=== PATIENT | male | born 1985 | race Caucasian/White ===

== ENCOUNTER 2017-07-12 03:01 | Observation (INO) | payer BC, OTHER ==
[2017-07-12] MEDS ORDERED: MVI, Adult with Vitamin K 10 ML, Thiamine 100 MG, Folic Acid 1 MG in Sodium Chloride 0.... IV ONE ×8 (03:12→05:11)
[2017-07-12] MEDS ORDERED: Sodium Chloride 0.9% 1,000 ML IV SCH ×2 (03:15→06:45)
--- NOTE | 2017-07-12 03:15 | EDM.PDOC ---
ED HPI GENERAL MEDICAL PROBLEM - General Chief Complaint: Drug or Alcohol Abuse Stated Complaint: INTOXICATED Time Seen by Provider: 07/12/17 03:11 - History of Present Illness INITIAL COMMENTS - FREE TEXT/NARRATIVE: HISTORY AND PHYSICAL: History of present illness: Patient 32-year-old white male brought in seemingly intoxicated found outside police were notified paramedics were notified patient was transported to emergency department his only injury was an avulsion injury to his left ear is no other signs of trauma he does smell of emesis and EtOH patient moves all extremities is uncooperative. Review of systems: As per history of present illness and below otherwise all systems reviewed and negative. Past medical history: As per history of present illness and as reviewed below otherwise noncontributory. Surgical history: As per history of present illness and as reviewed below otherwise noncontributory. Social history: No reported history of drug or alcohol abuse. Family history: As per history of present illness and as reviewed below otherwise noncontributory. Physical exam: HEENT: Avulsion injury left pinna, normocephalic, pupils reactive, negative for conjunctival pallor or scleral icterus, mucous membranes moist, throat clear, neck supple, nontender, trachea midline. Lungs: Clear to auscultation, breath sounds equal bilaterally, chest nontender. Heart: S1S2, regular, negative for clicks, rubs, or JVD. Abdomen: Soft, nondistended, nontender. Negative for masses or hepatosplenomegaly. Negative for costovertebral tenderness. Pelvis: Stable nontender. Genitourinary: Deferred. Rectal: Deferred. Extremities: Atraumatic, negative for cords or calf pain. Neurovascular unremarkable. Neuro: Patient awake follows commands moves all extremities limited grossly nonfocal exam Diagnostics: CBC CMP EtOH CT brain CT C-spine chest x-ray EKG Therapeutics: Banana bag Impression: #1 ethanol abuse #2 avulsion injury left ear Definitive disposition and diagnosis as appropriate pending reevaluation and review of above. - Related Data Allergies Allergy/AdvReac Type Severity Reaction Status Date / Time No Known Allergies Allergy Verified 07/12/17 03:44 Home Meds: Home Meds . [No Known Home Meds] 07/12/17 [History] ED ROS GENERAL - Review of Systems Review Of Systems: ROS reveals no pertinent complaints other than HPI. ED EXAM, GENERAL - Physical Exam Exam: See Below (See dictation) Course - Vital Signs Last Recorded V/S: Last Vital Signs Temp 36.0 C 07/12/17 04:01 Pulse 69 07/12/17 04:01 Resp 16 07/12/17 04:01 BP 107/59 L 07/12/17 04:01 Pulse Ox 93 L 07/12/17 04:01 - Orders/Labs/Meds Orders: Active Orders 24 hr Category Date Time Status EKG 12 Lead [EKG Documentation Completion] [RC] STAT Care 07/12/17 03:09 Active Vaccines to be Administered [RC] PER UNIT ROUTINE Care 07/12/17 03:16 Active Cervical Spine wo Cont [CT] Stat Exams 07/12/17 03:09 Taken Chest 1V Frontal [CR] Stat Exams 07/12/17 03:09 Taken Head wo Cont [CT] Stat Exams 07/12/17 03:09 Taken Sodium Chloride 0.9% [Normal Saline] 1,000 ml Med 07/12/17 03:15 Active IV ASDIRECTED Medication Orders Sodium Chloride (Normal Saline) 1,000 mls @ 999 mls/hr IV ASDIRECTED JEF Last Admin: 07/12/17 03:42 Dose: 999 mls/hr Labs: Laboratory Tests 07/12/17 07/12/17 07/12/17 Range/Units 03:10 03:15 03:15 WBC 11.30 H (4.0-11.0) K/uL RBC 5.02 (4.50-5.90) M/uL Hgb 16.4 (13.0-17.0) g/dL Hct 46.3 (38.0-50.0) % MCV 92.2 (80.0-98.0) fL MCH 32.7 H (27.0-32.0) pg MCHC 35.4 (31.0-37.0) g/dL RDW Std Deviation 44.6 (28.0-62.0) fl RDW Coeff of Eduarda 13 (11.0-15.0) % Plt Count 240 (150-400) K/uL MPV 9.70 (7.40-12.00) fL Neut % (Auto) 65.2 (48.0-80.0) % Lymph % (Auto) 27.3 (16.0-40.0) % [place] % (Auto) 5.6 (0.0-15.0) % Eos % (Auto) 1.5 (0.0-7.0) % Baso % (Auto) 0.4 (0.0-1.5) % Neut # (Auto) 7.4 H (1.4-5.7) K/uL Lymph # (Auto) 3.1 H (0.6-2.4) K/uL [place] # (Auto) 0.6 (0.0-0.8) K/uL Eos # (Auto) 0.2 (0.0-0.7) K/uL Baso # (Auto) 0.0 (0.0-0.1) K/uL Nucleated RBC % 0.0 /100WBC Nucleated RBCs # 0 K/uL Sodium 146 (136-146) mmol/L Potassium 3.2 L (3.5-5.1) mmol/L Chloride 109 (98-110) mmol/L Carbon Dioxide 23 (21-31) mmol/L BUN 12 (6.0-23.0) mg/dL Creatinine 1.0 (0.6-1.5) mg/dL Est Cr Clr Drug Dosing 112.95 mL/min Estimated GFR (MDRD) > 60.0 ml/min Glucose 88 (60-110) mg/dL POC Glucose 90 (60-110) mg/dL Calcium 8.5 L (8.8-10.8) mg/dL Total Bilirubin 0.3 (0.1-1.5) mg/dL AST 41 H (5-40) IU/L ALT 49 (8-54) IU/L Alkaline Phosphatase 94 (40-150) Total Protein 7.9 (6.0-8.0) g/dL Albumin 4.5 (3.5-5.0) g/dL Globulin 3.4 (2.0-3.5) g/dL Albumin/Globulin Ratio 1.3 (1.3-2.8) Ethyl Alcohol 359.6 mg/dL Meds: Medications Generic Name Dose Route Start Last Admin Trade Name Freq PRN Reason Stop Dose Admin Sodium Chloride 1,000 mls @ 999 mls/hr 07/12/17 03:15 07/12/17 03:42 Normal Saline IV 999 mls/hr ASDIRECTED JEF Administration Discontinued Medications Generic Name Dose Route Start Last Admin Trade Name Maegan PRN Reason Stop Dose Admin Diphtheria/Tetanus/Acell Pertussis 0.5 ml 07/12/17 03:16 Adacel IM 07/12/17 03:17 .ONCE ONE Multivitamins/Minerals 10 ml/ 1,011.2 mls @ 999 mls/hr 07/12/17 03:12 03:53 Thiamine HCl 100 mg/ Folic IV 07/12/17 04:12 999 mls/hr Acid 1 mg/ Sodium Chloride ONETIME ONE Administration Departure - Departure Time of Disposition: 04:18 Disposition: Refer to Observation Condition: Good Clinical Impression: Alcohol abuse, Head injury - Discharge Information Forms: ED Department Discharge - My Orders Last 24 Hours: My Active Orders 07/12/17 03:09 EKG 12 Lead [EKG Documentation Completion] [RC] STAT Cervical Spine wo Cont [CT] Stat Chest 1V Frontal [CR] Stat Head wo Cont [CT] Stat 07/12/17 03:15 Sodium Chloride 0.9% [Normal Saline] 1,000 ml IV ASDIRECTED 07/12/17 03:16 Vaccines to be Administered [RC] PER UNIT ROUTINE - Assessment/Plan Last 24 Hours: My Active Orders 07/12/17 03:09 EKG 12 Lead [EKG Documentation Completion] [RC] STAT Cervical Spine wo Cont [CT] Stat Chest 1V Frontal [CR] Stat Head wo Cont [CT] Stat 07/12/17 03:15 Sodium Chloride 0.9% [Normal Saline] 1,000 ml IV ASDIRECTED 07/12/17 03:16 Vaccines to be Administered [RC] PER UNIT ROUTINE
[2017-07-12] MEDS ORDERED: Diphtheria,Pertussis(Acell),Tetanus Vaccine 0.5 ML Syringe IM ONE (03:16)
[2017-07-12 03:46] LABS: CHLORIDE,CL 109 mmol/L (98-110); SODIUM,NA 146 mmol/L (136-146)
[2017-07-12] MEDS ORDERED: Ondansetron 4 MG Tab.DIS PO PRN (05:15)
[2017-07-12] MEDS ORDERED: LORazepam 2 MG/ML SDV IV PRN (05:17)
[2017-07-12 10:04] LABS: CHLORIDE,CL 113 mmol/L (98-110); SODIUM,NA 146 mmol/L (136-146)
--- NOTE | 2017-07-12 11:21 | PCM.HP ---
H&P History of Present Illness - General Date of Service: 07/12/17 Admit Problem/Dx: Admission Diagnosis/Problem Admission Diagnosis/Problem Alcohol abuse Source of Information: Patient, Provider, RN - History of Present Illness Initial Comments - Free Text/Narative: He presented to the ED with acute alcohol intoxication and in hospital monitoring was recommended. He admitted to drinking heavy last night. He does not drink heavy daily. unable to verbalized Pain Score (Numeric/FACES): 0 - Related Data Allergies/Adverse Reactions: Allergies Allergy/AdvReac Type Severity Reaction Status Date / Time No Known Allergies Allergy Verified 07/12/17 03:44 Home Medications: Home Meds . [No Known Home Meds] 07/12/17 [History] Past Medical History HEENT History: Denies: Cataract Cardiovascular History: Denies: Afib, Heart Failure, Heart Murmur, High Cholesterol, Hypertension, OR Respiratory History: Denies: COPD, Interstitial Lung Disease, Pulmonary Fibrosis , TB Gastrointestinal History: Reports: GERD. Denies: Cirrhosis Genitourinary History: Denies: Chronic Renal Insuffiency Musculoskeletal History: Denies: Connective Tissue Disease, Muscular Dystrophy Neurological History: Denies: CVA, MS Endocrine/Metabolic History: Denies: Diabetes, Type I, Diabetes, Type II Immunologic History: Denies: Immunosuppression Oncologic (Cancer) History: Reports: None Social & Family History - Alcohol Use Alcohol Use Comment: as per hpi H&P Review of Systems - Review of Systems: Review Of Systems: See Below Free Text/Narrative: He feels like he "has a hangover". Pulmonary: Denies: Shortness of Breath, Cough, Sputum Cardiovascular: Denies: Chest Pain Gastrointestinal: Denies: Abdominal Pain, Bloody Stool, Hematemesis Exam - Exam Exam: See Below - Vital Signs Vital Signs: Last Vital Signs Temp 97.8 F 07/12/17 08:00 Pulse 103 H 07/12/17 08:00 Resp 20 07/12/17 08:00 BP 120/57 L 07/12/17 08:00 Pulse Ox 96 07/12/17 08:00 Weight: 97.9 kg - Exam General: Alert, Oriented, Cooperative HEENT: EOMI Neck: Supple, Trachea Midline Lungs: Clear to Auscultation, Normal Respiratory Effort Cardiovascular: Regular Rate, Regular Rhythm GI/Abdominal Exam: Soft, Non-Tender (Male) Exam: Deferred Rectal (Males) Exam: Deferred Neurological: Cranial Nerves Intact, Normal Speech Psychiatric: Alert - Patient Data Lab Results Last 24 hrs: Laboratory Results - last 24 hr 07/12/17 07/12/17 Range/Units 09:07 09:07 WBC 5.92 (4.0-11.0) K/uL RBC 4.47 L (4.50-5.90) M/uL Hgb 14.5 (13.0-17.0) g/dL Hct 41.1 (38.0-50.0) % MCV 91.9 (80.0-98.0) fL MCH 32.4 H (27.0-32.0) pg MCHC 35.3 (31.0-37.0) g/dL RDW Std Deviation 44.3 (28.0-62.0) fl RDW Coeff of Eduarda 13 (11.0-15.0) % Plt Count 194 (150-400) K/uL MPV 9.70 (7.40-12.00) fL Neut % (Auto) 59.0 (48.0-80.0) % Lymph % (Auto) 31.3 (16.0-40.0) % [place] % (Auto) 7.6 (0.0-15.0) % Eos % (Auto) 1.9 (0.0-7.0) % Baso % (Auto) 0.2 (0.0-1.5) % Neut # (Auto) 3.5 (1.4-5.7) K/uL Lymph # (Auto) 1.9 (0.6-2.4) K/uL [place] # (Auto) 0.5 (0.0-0.8) K/uL Eos # (Auto) 0.1 (0.0-0.7) K/uL Baso # (Auto) 0.0 (0.0-0.1) K/uL Nucleated RBC % 0.0 /100WBC Nucleated RBCs # 0 K/uL Sodium 146 (136-146) mmol/L Potassium 4.0 (3.5-5.1) mmol/L Chloride 113 H (98-110) mmol/L Carbon Dioxide 23 (21-31) mmol/L BUN 9 (6.0-23.0) mg/dL Creatinine 0.7 (0.6-1.5) mg/dL Est Cr Clr Drug Dosing 161.36 mL/min Estimated GFR (MDRD) > 60.0 ml/min Glucose 94 (60-110) mg/dL Calcium 7.8 L (8.8-10.8) mg/dL Magnesium 1.7 (1.5-2.3) mEq/L Total Bilirubin 0.3 (0.1-1.5) mg/dL AST 33 (5-40) IU/L ALT 42 (8-54) IU/L Alkaline Phosphatase 77 (40-150) Total Protein 6.2 (6.0-8.0) g/dL Albumin 3.9 (3.5-5.0) g/dL Globulin 2.3 (2.0-3.5) g/dL Albumin/Globulin Ratio 1.7 (1.3-2.8) Result Diagrams: 07/12/17 09:07 07/12/17 09:07 *Q Meaningful Use (ADM) - VTE *Q VTE Criteria *Q: - Stroke *Q Stroke Criteria *Q: - AMI *Q AMI Criteria *Q: - Problem List (1) Alcohol intoxication SNOMED Code(s): 04532874 ICD Code: F10.929 - ALCOHOL USE, UNSPECIFIED WITH INTOXICATION, UNSPECIFIED Status: Acute Current Visit: Yes Problem List Initiated/Reviewed/Updated: Yes Orders Last 24hrs: Active Orders 24 hr Category Date Time Status CIWAA Assessment [RC] Q2H Care 07/12/17 05:15 Active Notify Provider [RC] PRN Care 07/12/17 05:17 Active Telemetry Monitoring [Cardiac Monitoring] [RC] . Care 07/12/17 05:02 Active DIRECTED Regular Diet [DIET] Diet 07/12/17 Breakfast Active LORazepam [Ativan] Med 07/12/17 05:17 Active See Protocol IV Q2H PRN MVI, Adult with Vitamin K [Infuvite Adult] 10 ml Med 07/12/17 05:11 Active Thiamine [Vitamin B-1] 100 mg Folic Acid 1 mg Sodium Chloride 0.9% [Normal Saline] 1,000 ml IV DAILY Ondansetron [Zofran ODT] Med 07/12/17 05:15 Active 4 mg PO Q4H PRN Sodium Chloride 0.9% [Normal Saline] 1,000 ml Med 07/12/17 06:45 Active IV ASDIRECTED Medication Orders Sodium Chloride (Normal Saline) 1,000 mls @ 999 mls/hr IV ASDIRECTED JEF Last Admin: 07/12/17 03:42 Dose: 999 mls/hr Multivitamins/Minerals 10 ml/Thiamine HCl 100 mg/ Folic Acid 1 mg/ Sodium Chloride 1,011.2 mls @ 150 mls/hr IV DAILY ONE Stop: 07/12/17 11:55 Last Admin: 07/12/17 06:08 Dose: 150 mls/hr Sodium Chloride (Normal Saline) 1,000 mls @ 150 mls/hr IV ASDIRECTED [facility] Lorazepam (Ativan) 0 mg IV Q2H PRN; Protocol PRN Reason: Withdrawal Symptoms Ondansetron HCl (Zofran Odt) 4 mg PO Q4H PRN PRN Reason: Nausea/Vomiting Assessment/Plan Comment:: observe Chandan Mariano MD
--- NOTE | 2017-07-12 11:24 | PCM.DCSUM1 ---
Discharge Summary - Hospital Course Brief History: He was admitted with acute alcohol intoxication. - Discharge Data Discharge Date: 07/12/17 Discharge Disposition: Home, Self-Care 01 Condition: Stable - Discharge Diagnosis/Problem(s) (1) Alcohol intoxication SNOMED Code(s): 81953394 ICD Code: F10.929 - ALCOHOL USE, UNSPECIFIED WITH INTOXICATION, UNSPECIFIED Status: Acute Current Visit: Yes - Patient Summary/Data Hospital Course: He was given supportive care. At discharge he feels ready to go home. As he has a history of chronic GE reflux symptoms, and is taking medicine for this, I recommended that he follow up with a doctor to consider endoscopic esophagogastroduodenoscopy He is discharged home without any prescriptions. - Discharge Plan Home Medications: Home Meds . [No Known Home Meds] 07/12/17 [History] Forms: ED Department Discharge Referrals: PCP,None [Primary Care Provider] - - Patient Data Vitals - Most Recent: Last Vital Signs Temp 97.8 F 07/12/17 08:00 Pulse 103 H 07/12/17 08:00 Resp 20 07/12/17 08:00 BP 120/57 L 07/12/17 08:00 Pulse Ox 96 07/12/17 08:00 Weight - Most Recent: 97.9 kg Lab Results - Last 24 hrs: Laboratory Results - last 24 hr 07/12/17 07/12/17 Range/Units 09:07 09:07 WBC 5.92 (4.0-11.0) K/uL RBC 4.47 L (4.50-5.90) M/uL Hgb 14.5 (13.0-17.0) g/dL Hct 41.1 (38.0-50.0) % MCV 91.9 (80.0-98.0) fL MCH 32.4 H (27.0-32.0) pg MCHC 35.3 (31.0-37.0) g/dL RDW Std Deviation 44.3 (28.0-62.0) fl RDW Coeff of Eduarda 13 (11.0-15.0) % Plt Count 194 (150-400) K/uL MPV 9.70 (7.40-12.00) fL Neut % (Auto) 59.0 (48.0-80.0) % Lymph % (Auto) 31.3 (16.0-40.0) % [place] % (Auto) 7.6 (0.0-15.0) % Eos % (Auto) 1.9 (0.0-7.0) % Baso % (Auto) 0.2 (0.0-1.5) % Neut # (Auto) 3.5 (1.4-5.7) K/uL Lymph # (Auto) 1.9 (0.6-2.4) K/uL [place] # (Auto) 0.5 (0.0-0.8) K/uL Eos # (Auto) 0.1 (0.0-0.7) K/uL Baso # (Auto) 0.0 (0.0-0.1) K/uL Nucleated RBC % 0.0 /100WBC Nucleated RBCs # 0 K/uL Sodium 146 (136-146) mmol/L Potassium 4.0 (3.5-5.1) mmol/L Chloride 113 H (98-110) mmol/L Carbon Dioxide 23 (21-31) mmol/L BUN 9 (6.0-23.0) mg/dL Creatinine 0.7 (0.6-1.5) mg/dL Est Cr Clr Drug Dosing 161.36 mL/min Estimated GFR (MDRD) > 60.0 ml/min Glucose 94 (60-110) mg/dL Calcium 7.8 L (8.8-10.8) mg/dL Magnesium 1.7 (1.5-2.3) mEq/L Total Bilirubin 0.3 (0.1-1.5) mg/dL AST 33 (5-40) IU/L ALT 42 (8-54) IU/L Alkaline Phosphatase 77 (40-150) Total Protein 6.2 (6.0-8.0) g/dL Albumin 3.9 (3.5-5.0) g/dL Globulin 2.3 (2.0-3.5) g/dL Albumin/Globulin Ratio 1.7 (1.3-2.8) Med Orders - Current: Current Medications Sodium Chloride (Normal Saline) 1,000 mls @ 999 mls/hr IV ASDIRECTED JEF Last Admin: 07/12/17 03:42 Dose: 999 mls/hr Multivitamins/Minerals 10 ml/Thiamine HCl 100 mg/ Folic Acid 1 mg/ Sodium Chloride 1,011.2 mls @ 150 mls/hr IV DAILY ONE Stop: 07/12/17 11:55 Last Admin: 07/12/17 06:08 Dose: 150 mls/hr Sodium Chloride (Normal Saline) 1,000 mls @ 150 mls/hr IV ASDIRECTED JEF Lorazepam (Ativan) 0 mg IV Q2H PRN; Protocol PRN Reason: Withdrawal Symptoms Ondansetron HCl (Zofran Odt) 4 mg PO Q4H PRN PRN Reason: Nausea/Vomiting Discontinued Medications Diphtheria/Tetanus/Acell Pertussis (Adacel) 0.5 ml IM .ONCE ONE Stop: 07/12/17 03:17 Last Admin: 07/12/17 04:38 Dose: Not Given Multivitamins/Minerals 10 ml/Thiamine HCl 100 mg/ Folic Acid 1 mg/ Sodium Chloride 1,011.2 mls @ 999 mls/hr IV ONETIME ONE Stop: 07/12/17 04:12 Last Admin: 07/12/17 03:53 Dose: 999 mls/hr *Q Meaningful Use (DIS) - VTE *Q VTE Criteria *Q: - Stroke *Q Stroke Criteria *Q: - AMI *Q AMI Criteria *Q:
--- NOTE | 2017-07-14 12:28 | CR ---
EXAM DATE: 07/12/17 PATIENT'S AGE: 32 Patient: JOSE VIERA Facility: [place], [place] Site . Site : 1985 Study: XRay Chest [id number]/28/[id number] 3:35:28 AM Ordering Physician: Sonya Sood Final Report: INDICATION: FELL, CHEST INJURY, INTOXICATION TECHNIQUE: Chest radiograph 1 view COMPARISON: None FINDINGS: Moderate degradation of image quality noted due to body habitus. Cardiovascular and mediastinum: The cardiac silhouette is normal in appearance and size. Mediastinum is within normal limits. Lungs and pleural spaces: Both lungs are unremarkable in appearance with small lung volumes. No sign of pleural effusion. No pneumothorax is seen. Bones and soft tissues: No significant findings. Anterior spinal fusion of the cervicothoracic junction noted. IMPRESSION: 1. No acute cardiopulmonary disease seen. Dictated by: Rahat Humphrey MD @ 07/12/2017 03:44:50 (Electronic Signature) Report Signed by Proxy. [facility] SYSTEM[facility]
--- NOTE | 2017-07-14 12:29 | CT ---
EXAM DATE: 07/12/17 PATIENT'S AGE: 32 Patient: JOSE VIERA Facility: [place], [place] Site . Site : 1985 Study: CT Head WO CONT [id number] 3:35:56 AM Ordering Physician: Sonya Sood Final Report: INDICATION: HEAD INJURY, FELL INTOXICATION TECHNIQUE: CT Head without i.v. contrast. COMPARISON: None FINDINGS: CSF spaces: Within normal limits for age. Brain parenchyma: The brain parenchyma is normal in appearance with preservation of the aparicio-white matter junction. No sign of mass, hemorrhage, or midline shift. Skull base and calvarium: The visualized paranasal sinuses are well aerated. The mastoid air cells are clear. The visualized orbits are grossly unremarkable. No skull fractures are seen. IMPRESSION: 1. No CT evidence of acute infarct, hemorrhage, or mass effect seen. Dictated by: Rahat Humphrey MD @ 07/12/2017 03:46:30 (Electronic Signature) Report Signed by Proxy. [facility]
--- NOTE | 2017-07-14 12:30 | CT ---
EXAM DATE: 07/12/17 PATIENT'S AGE: 32 Patient: JOSE VIERA Facility: [place], [place] Site . Site : 1985 Study: CT Spine Cervical WO CONT [id number]/[id number] 3:37:24 AM Ordering Physician: Sonya Sood Final Report: INDICATION: Neck injury , intoxicated TECHNIQUE: CT cervical spine without i.v. contrast. Coronal and sagittal reformats were obtained. CONTRAST: None COMPARISON: None FINDINGS: Alignment: Unremarkable. Bone: No acute fractures or aggressive bone lesions are identified. Disc: Anterior spinal fusion of C6-7 with anterior plate and incorporated bone graft is noted. The facet joints are unremarkable. Soft tissue: The prevertebral soft tissues are unremarkable in appearance. The visualized lung apices and mediastinum are unremarkable. IMPRESSIONS: 1. No acute osseous injuries are identified. Dictated by Rahat Humphrey MD @ 07/12/2017 3:57:28 AM Dictated by: Rahat Humphrey MD @ 07/12/2017 03:57:31 (Electronic Signature) Report Signed by Proxy. [facility]
== END 2017-07-12 12:05 | disposition home or self-care (01) ==
LOC: MW.ED 03:01 → MW.MS 04:19
PROVIDERS: ADMIT Family Medicine; ATTEND Family Medicine
DX: F10.129 Alcohol abuse with intoxication, unspecified (principal)
CPT/HCPCS: 70450; 71010; 72125; 80053; 82962; 83735; 85025; 93005; 96365; 96366; 99285; G0378; G0480; J3411; J7040; 99284